=== PATIENT | female | born 1985 | race Caucasian/White ===

== ENCOUNTER 2018-05-30 10:07 | Inpatient (IN) | payer BC, OTHER ==
[2018-05-30 11:36] VITALS: BMI 25.2
[2018-05-30] MEDS ORDERED: METHYLERGONOVINE 0.2 MG/ML 1 ML AMP IM PRN (11:44)
[2018-05-30] MEDS ORDERED: OXYTOCIN 10 UNIT/ML 1 ML VIAL IM PRN (11:44)
[2018-05-30] MEDS ORDERED: CARBOPROST TROMETHAMINE 250 MCG/ML 1 ML AMP IM PRN (11:44)
[2018-05-30] MEDS ORDERED: TERBUTALINE 1 MG/ML VIAL SQ PRN (11:44)
[2018-05-30] MEDS ORDERED: LIDOCAINE 0.5% (PF) 5 MG/ML (50 ML SDV) SQ PRN (11:44)
[2018-05-30] MEDS ORDERED: BUTORPHANOL 1 MG/ML 1 ML VIAL IV PRN (11:45)
--- NOTE | 2018-05-30 11:52 | P.HPOB ---
History of Present Illness H&P Date: 05/30/18 Chief Complaint: 40-2/7 weeks, early labor, history of The patient is a 32-year-old 4 para 3003 admitted at 40-2/7 weeks as established by last menstrual period and confirmed by 19 week ultrasound. She is admitted in early labor with all signs reassuring. Her has been entirely uncomplicated and group B strep status is negative. She does carry a history of a delivery for her first delivery followed by 2 successful vaginal births after section and has requested trial of labor for this . Obstetrical history: 4 para 3003 with 3 term deliveries, the first being followed by 2 successful VBACs. Current statistics are listed in history present illness. EDC of 05/28/2018 was established by last menstrual period and confirmed by 19 week ultrasound. Laboratory workup done traits of blood type of O+ with a negative antibody screen. Rubella status is immune. Remainder of the laboratory workup was within normal limits. Second trimester Glucola was normal and group B strep status is negative. Gynecologic history: Unremarkable with no history of any infections to include STDs. Review of Systems Review of systems is confined to history of present illness. Past Medical History Past Medical History: No Reported History History of Any Multi-Drug Resistant Organisms: None Reported Past Surgical History: Section Additional Past Surgical History / Comment(s): Primary low transverse section 2009 Past Anesthesia/Blood Transfusion Reactions: No Reported Reaction Past Psychological History: No Psychological Hx Reported Smoking Status: Never smoker Past Alcohol Use History: None Reported Past Drug Use History: None Reported - Past Family History Sister(s) Family Medical History: Cancer Additional Family Medical History / Comment(s): lymphoma Medications and Allergies Home Medications Medication Instructions Recorded Confirmed Type Hoq-Sevo-Waohi Acid 1 PO DAILY 04/29/14 04/29/14 History [-U Capsule (formulary)] Allergies Allergy/AdvReac Type Severity Reaction Status Date / Time No Known Allergies Allergy Verified 05/30/18 10:18 Exam Vital Signs Temp Pulse Resp Pulse Ox 05/30/18 11:29 98.1 F 88 16 99 Intake and Output 05/29/18 05/30/18 05/30/18 22:59 06:59 14:59 Other: Weight 70.76 kg In general, this is a well-developed, well-nourished white female in no acute distress. Her heart has a regular rhythm and rate without murmur. Her lungs are clear to auscultation bilaterally in all byrne. Her abdomen is gravid, nondistended, has normal active bowel sounds, is soft, nontender, and without any palpable masses aside from the uterine fundus. Her extremities are without any cyanosis, clubbing, or edema and are nontender to palpation bilaterally. Digital cervical examination demonstrates her cervix to be 3+ centimeters dilated, 80% effaced, with the vertex in presentation at -2 station. Artificial rupture of membranes is carried out demonstrating clear fluid. Assessment and Plan (1) History of Current Visit: Yes Status: Acute Code(s): Z98.89 - OTHER SPECIFIED POSTPROCEDURAL STATES * DO NOT USE * SNOMED Code(s): 181129168 (2) Spontaneous onset of labor Current Visit: Yes Status: Acute Code(s): NCB6494 - SNOMED Code(s): 06359495 Plan: The patient is admitted for active management of labor. She understands the risks and complications associated with vaginal trial of labor after section. She will have close maternal and surveillance and expectant management will be practiced. She is a good candidate for either IV or epidural analgesia, whichever she may choose.
[2018-05-30 12:00] LABS: Basophils % (A) 0 %; Eosinophils % (A) 0 %; HGB 12.1 gm/dL (11.4-16.0); Lymphocytes # (A) 1.4 k/uL (1.0-4.8); Lymphocytes % (A) 20 %; MCH 26.1 pg (25.0-35.0); MCHC 32.7 g/dL (31.0-37.0); MCV 79.8 fL (80.0-100.0); Mean Platelet Volume 8.3; Monocytes # (A) 0.2 k/uL (0-1.0); Monocytes % (A) 3 %; Neutrophils # (A) 5.3 k/uL (1.3-7.7); Neutrophils % (A) 76 %; Platelet Count 198 k/uL (150-450); RBC 4.63 m/uL (3.80-5.40); RDW 13.8 % (11.5-15.5)
[2018-05-30] MEDS: LACTATED RINGERS 1,000 ML IV SCH ×2 (12:35→13:08)
[2018-05-30] MEDS ORDERED: ROPIVACAINE 100 MG, fentaNYL (PF) 200 MCG in SODIUM CHLORIDE 0.9% 76 ML EPIDURAL ONE (13:43)
[2018-05-30] MEDS ORDERED: BENZOCAINE/MENTHOL SPRAY 1 GM/SPRAY AEROSOL TOPICAL PRN (15:53)
[2018-05-30] MEDS ORDERED: ACETAMINOPHEN TAB 325 MG TAB PO PRN (15:53)
[2018-05-30] MEDS ORDERED: LANOLIN CREAM 5 GM TUBE TOPICAL PRN (15:53)
[2018-05-30] MEDS ORDERED: diphenhydrAMINE 25 MG CAP PO PRN (15:53)
[2018-05-30] MEDS ORDERED: HYDROcodone/APAP 5-325MG 1 EACH TAB PO PRN (15:53)
[2018-05-30] MEDS ORDERED: HYDROcodone/APAP 7.5-325MG 1 EACH TAB PO PRN (15:53)
[2018-05-30] MEDS ORDERED: diphenhydrAMINE 50 MG/ML 1 ML VIAL IVP PRN ×2 (15:53)
[2018-05-30] MEDS ORDERED: SIMETHICONE 80 MG CHEWABLE PO PRN (15:53)
[2018-05-30] MEDS ORDERED: WITCH HAZEL 1 EACH MED..PAD TOPICAL PRN (15:53)
[2018-05-30] MEDS ORDERED: diphenhydrAMINE 50 MG CAP PO PRN (15:53)
[2018-05-30] MEDS ORDERED: ZOLPIDEM 5 MG TAB PO PRN (15:53)
[2018-05-30] MEDS ORDERED: HYDROCORTISONE 2.5% RECTAL CREAM 30 GM TUBE RECTAL PRN (15:53)
--- NOTE | 2018-05-30 15:57 | P.PROBDLV ---
Vaginal Delivery Note - . Vaginal Delivery Note: The patient is a 32-year-old 4 para 3003 who presented at 40-2/7 weeks by good dating parameters in early active labor with all signs reassuring. She has a history of a section delivery in her first followed by 2 successful vaginal births after section and has requested trial of labor understanding the risks. On labor and delivery, she underwent artificial rupture of membranes demonstrating clear fluid. She had an epidural catheter placed for analgesia and then made fairly rapid progress through the active phase of labor to complete. She pushed over the course of approximately 25 minutes to a normal spontaneous vaginal delivery, successful , of a viable 8 lbs. 0 oz. baby boy with Apgars of 9 at 1 minute and 10 at 5 minutes delivered in the left occiput anterior position. The placenta was delivered spontaneously, intact, and grossly normal with a grossly normal three-vessel cord inserted approximately 3 cm from the margin of the placental disc. There was a second-degree midline perineal laceration inside of a previous laceration which was repaired with 3-0 chromic catgut without difficulty. There was a first-degree right labial laceration which was gaping and therefore repaired with 3-0 chromic catgut as well. There were no complications. All sponge, instrument, and needle counts were correct. Both mother and infant are resting comfortably in recovery.
[2018-05-30] MEDS ORDERED: OXYTOCIN 20 UNITS/1000 ML NS 1,000 ML IV SCH (16:00)
[2018-05-30] MEDS: IBUPROFEN 600 MG TAB PO PRN (17:53)
[2018-05-30] MEDS: SENNOSIDES-DOCUSATE SODIUM 1 EACH TAB PO SCH (20:48)
[2018-05-31 00:17] VITALS: RESP 16
[2018-05-31] MEDS: SENNOSIDES-DOCUSATE SODIUM 1 EACH TAB PO SCH (08:23)
[2018-05-31 08:28] VITALS: BP 109/70; PULSE 61; TEMP 97.7
[2018-05-31] MEDS: IBUPROFEN 600 MG TAB PO PRN (08:29)
--- NOTE | 2018-05-31 11:52 | P.DS ---
Providers Date of admission: 05/30/18 11:03 Expected date of discharge: 05/31/18 Attending physician: Sal Segovia Primary care physician: Stated None - Discharge Diagnosis(es) (1) History of Current Visit: Yes Status: Acute (2) Spontaneous onset of labor Current Visit: Yes Status: Acute (3) , delivered, current hospitalization Current Visit: Yes Status: Acute Hospital Course: The patient is a 32-year-old 4 para 3003 admitted at 40-2/7 weeks by good dating parameters. She is admitted in early labor with all signs reassuring. Her was uncomplicated and group B strep status was negative. She did have a delivery in her first followed by 2 successful VBACs and requested trial of labor for this . On labor and delivery, she underwent artificial rupture of membranes demonstrating clear fluid. She had an epidural catheter placed for analgesia and then progressed relatively steadily to complete. She pushed to a normal spontaneous vaginal delivery of a viable 8 lbs. 0 oz. baby boy with Apgars of 9 at 1 minute and 10 at 5 minutes. Her course was unremarkable vital signs remaining stable and her temperature was afebrile throughout. She was deemed stable for discharge on day #1 was discharged home to follow-up in the office in 6 weeks' time routinely. Discharge instructions included calling for any significantly increased bleeding or foul-smelling lochia, significantly increased fever or abdominal pain, perineal complaints, breast complaints, or anything else that concerned her. She was additionally instructed to have nothing in the vagina for at least 6 weeks time to include intercourse. She understood her instructions and agrees to follow up as noted above. Discharge medications included continued vitamins as she has opted to breast- feed as well as [id number] analgesic pain medications as needed. Maternal blood type is O+ and rubella status is immune. Procedures: #1. Artificial rupture of membranes #2. Epidural analgesia #3. Normal spontaneous vaginal delivery, successful #4. Repair of perineal lacerations Patient Condition at Discharge: Good Plan - Discharge Summary New Discharge Prescriptions: No Action Vnb-Zrlh-Igyje Acid [-U Capsule (formulary)] 1 PO DAILY Discharge Medication List Sde-Nmur-Yadem Acid [-U Capsule (formulary)] 1 PO DAILY [History] Follow up Appointment(s)/Referral(s): Sal Segovia MD [STAFF PHYSICIAN] - 6 Weeks Discharge Disposition: HOME SELF-CARE
== END 2018-05-31 15:58 | disposition home or self-care (01) | DRG 807 ==
LOC: FBPOP 10:07 → 4FBP 11:03
PROVIDERS: ADMIT Obstetrics & Gynecology; ATTEND Obstetrics & Gynecology
PROC: 10E0XZZ Delivery of Products of Conception, External Approach (ICD-10-PCS; principal; 2018-05-30)
PROC: 0KQM0ZZ Repair Perineum Muscle, Open Approach (ICD-10-PCS; 2018-05-30)
PROC: 00HU33Z Insertion of Infusion Device into Spinal Canal, Percutaneous Approach (ICD-10-PCS; 2018-05-30)
PROC: 3E0R3BZ Introduction of Anesthetic Agent into Spinal Canal, Percutaneous Approach (ICD-10-PCS; 2018-05-30)
DX: O34.219 Maternal care for unspecified type scar from previous cesarean delivery (principal); Z37.0 Single live birth; O70.1 Second degree perineal laceration during delivery; O70.0 First degree perineal laceration during delivery; Z3A.40 40 weeks gestation of pregnancy; Z80.7 Family history of other malignant neoplasms of lymphoid, hematopoietic and related tissues
CPT/HCPCS: 59025; 85025; 86850; 86900; 86901; 99213